=== PATIENT | female | born 1995 | race Caucasian/White ===

== ENCOUNTER 2024-02-19 12:50 | Emergency (ER) | payer BC ==
[~2024-02-19] VITALS: Ht 157.5 cm; Wt 59.0 kg
[2024-02-19 12:59] VITALS: O2SAT 99
[2024-02-19 14:24] LABS: BASOPHILS % 0.1 % (0.0-2.0); EOSINOPHILS % 0.6 % (0.0-5.0); HEMATOCRIT. 40.5 % (36.0-48.0); HEMOGLOBIN. 13.2 g/dL (12.0-16.0); LYMPHOCYTES % 17.3 % (20.0-50.0); MEAN CORPUSCULAR HEMOGLOBIN 28.5 pg (28.0-32.0); MEAN CORPUSCULAR HGB CONC 32.5 g/dL (31.0-37.0); MEAN CORPUSCULAR VOLUME 87.8 fL (81.0-99.0); MEAN PLATELET VOLUME 7.4 fl (7.4-10.4); MONOCYTES % 8.3 % (2.0-8.0); NEUTROPHILS % 73.7 % (40.0-76.0); PLATELET 352 x1000/uL (130-400); RED BLOOD CELL COUNT 4.62 mill/uL (4.2-5.4); WHITE BLOOD COUNT 12.6 x1000/uL (4.5-11.0)
[2024-02-19 14:36] LABS: CHLORIDE 103 mEq/L (98-107); POTASSIUM 3.6 mEq/L (3.5-5.1); SODIUM 140 mEq/L (136-145)
[2024-02-19 14:37] LABS: CARBON DIOXIDE 27 mEq/L (21-32)
[2024-02-19 14:38] LABS: CALCIUM 9.1 mg/dL (8.7-10.4)
[2024-02-19 14:43] LABS: CREATININE 0.7 mg/dL (0.6-1.0); GLUCOSE 93 mg/dL (70-105); HCG SCREEN NEGATIVE; UREA NITROGEN BLOOD 13 mg/dL (9-23)
[2024-02-19] MEDS: ACETAMINOPHEN 325MG TABLET PO ONE (17:30)
[2024-02-19] MEDS ORDERED: AMOX1TAB16 MT (17:34)
[2024-02-19] MEDS ORDERED: IBUP-2029 MT (17:34)
[2024-02-19] MEDS ORDERED: IOHEXOL-300 100 ML BOTTLE ONE (17:36)
[2024-02-19 18:34] VITALS: BP 121/75; PULSE 71; RESP 16; TEMP 98.4
== END 2024-02-19 18:34 | disposition home or self-care (01) ==
LOC: ER 12:50
DX: K04.7 Periapical abscess without sinus (principal); R51.9 Headache, unspecified; Z90.49 Acquired absence of other specified parts of digestive tract
CPT/HCPCS: 80048; 84703; 85025; 36415; 70487; 99285; Q9967; Z7610